=== PATIENT | female | born 1990 | race African-American/Black ===

== ENCOUNTER 2018-08-06 09:55 | Observation (INO) | payer OTHER ==
[~2018-08-06] VITALS: Ht 172.7 cm; Wt 87.5 kg
[~2018-08-06 09:55] MED LIST: FERR325T23; FOLI-43; PREN1TAB49
== END 2018-08-06 11:30 | disposition home or self-care (01) ==
LOC: 8 EST LDRP 09:55
PROVIDERS: ADMIT Specialist; ATTEND Specialist
DX: O62.9 Abnormality of forces of labor, unspecified (principal); Z3A.32 32 weeks gestation of pregnancy
CPT/HCPCS: 99281; G0378

== ENCOUNTER 2018-08-24 13:03 | Observation (INO) | payer OTHER ==
[~2018-08-24] VITALS: Ht 172.7 cm; Wt 88.5 kg
[2018-08-24] MEDS ORDERED: LACTATED RINGERS 1,000 ML IV SCH (14:00)
[2018-08-24] MEDS ORDERED: ONDANSETRON HCL 4MG/2ML INJ IV PRN (14:00)
[2018-08-24] MEDS ORDERED: ACETAMINOPHEN 325MG TABLET PO SCH (14:00)
[2018-08-24 14:14] LABS: CLARITY URINE CLEAR (CLEAR); COLOR URINE YELLOW (YELLOW); KETONES URINE 2+ (NEGATIVE); LEUKOCYTE ESTERASE URINE TRACE (NEGATIVE); NITRITE URINE NEGATIVE (NEGATIVE); OCCULT BLOOD URINE NEGATIVE (NEGATIVE); PROTEIN URINE NEGATIVE (NEGATIVE); SPECIFIC GRAVITY URINE 1.012 (1.005-1.030); UROBILINOGEN URINE 0.2 E.U./dL (0.2-1.0)
[2018-08-24 14:16] LABS: BASOPHILS % 0.6 % (0.0-2.0); EOSINOPHILS % 1.2 % (0.0-5.0); HEMATOCRIT. 35.7 % (36.0-48.0); HEMOGLOBIN. 12.2 g/dL (12.0-16.0); LYMPHOCYTES % 15.1 % (20.0-50.0); MEAN CORPUSCULAR HEMOGLOBIN 31.3 pg (28.0-32.0); MEAN CORPUSCULAR VOLUME 91.5 fL (81.0-99.0); MEAN PLATELET VOLUME 8.5 fl (7.4-10.4); MONOCYTES % 7.9 % (2.0-8.0); NEUTROPHILS % 75.2 % (40.0-76.0); PLATELET 249 x1000/uL (130-400)
[2018-08-24 14:17] LABS: CHLORIDE 106 mEq/L (98-107)
== END 2018-08-24 15:56 | disposition home or self-care (01) ==
LOC: 8 EST LDRP 13:03
PROVIDERS: ADMIT Specialist; ATTEND Specialist
DX: O21.2 Late vomiting of pregnancy (principal); O26.893 Other specified pregnancy related conditions, third trimester; R19.7 Diarrhea, unspecified; R51 Headache; Z3A.33 33 weeks gestation of pregnancy
CPT/HCPCS: 36415; 80053; 81003; 85025; 96374; G0378; J2405

== ENCOUNTER 2018-09-09 22:21 | Observation (INO) | payer OTHER ==
[~2018-09-09] VITALS: Ht 175.3 cm; Wt 89.4 kg
[~2018-09-09 22:21] MED LIST changes: -FERR325T23; -FOLI-43
[2018-09-09] MEDS ORDERED: PNV1TABL50 MT (23:22)
== END 2018-09-09 23:45 | disposition home or self-care (01) ==
LOC: 8 EST LDRP 22:21
PROVIDERS: ADMIT Obstetrics & Gynecology; ATTEND Obstetrics & Gynecology
DX: O42.913 Preterm premature rupture of membranes, unspecified as to length of time between rupture and onset of labor, third trimester (principal); O62.9 Abnormality of forces of labor, unspecified; O26.893 Other specified pregnancy related conditions, third trimester; M54.9 Dorsalgia, unspecified; R10.30 Lower abdominal pain, unspecified; Z3A.36 36 weeks gestation of pregnancy
CPT/HCPCS: 99281; G0378

== ENCOUNTER 2018-09-14 22:20 | Observation (INO) | payer OTHER ==
[~2018-09-14] VITALS: Ht 172.7 cm; Wt 90.7 kg
[~2018-09-14 22:20] MED LIST changes: +PNV1TABL50 MT
== END 2018-09-15 00:45 | disposition home or self-care (01) ==
LOC: 8 EST LDRP 22:20
PROVIDERS: ADMIT Specialist; ATTEND Specialist
DX: O62.9 Abnormality of forces of labor, unspecified (principal); Z3A.36 36 weeks gestation of pregnancy
CPT/HCPCS: 99281; G0378

== ENCOUNTER 2018-09-27 18:39 | Observation (INO) | payer OTHER | END 2018-09-27 21:30 | disposition home or self-care (01) | LOC: 8 EST LDRP 18:39 | PROVIDERS: ADMIT Specialist; ATTEND Specialist | DX: O26.893 Other specified pregnancy related conditions, third trimester (principal); R10.9 Unspecified abdominal pain; Z3A.38 38 weeks gestation of pregnancy | CPT/HCPCS: 99281; G0378 ==

== ENCOUNTER 2018-09-28 14:46 | Inpatient (IN) | payer OTHER ==
[~2018-09-28] VITALS: Ht 172.7 cm; Wt 92.5 kg
[2018-09-28] MEDS ORDERED: LACTATED RINGERS 1,000 ML IV PRN (15:30)
[2018-09-28] MEDS ORDERED: DEXT 5%/LR + PITOCIN 20UNITS/L 1,000 ML IV PRN (15:30)
[2018-09-28] MEDS ORDERED: LIDOCAINE HCL 1% 20ML VIAL (Pyxis) INJ INFIL PRN (15:30)
[2018-09-28] MEDS ORDERED: BUTORPHANOL TARTRATE 2 MG/ML VIAL IV PRN (15:30)
[2018-09-28] MEDS ORDERED: ROPIVACAINE HCL/PF EPIDURAL 200 ML EPI SCH (16:30)
[2018-09-28 16:43] LABS: BASOPHILS % 0.4 % (0.0-2.0); EOSINOPHILS % 0.6 % (0.0-5.0); HEMATOCRIT. 34.9 % (36.0-48.0); HEMOGLOBIN. 11.8 g/dL (12.0-16.0); LYMPHOCYTES % 12.9 % (20.0-50.0); MEAN CORPUSCULAR HEMOGLOBIN 31.1 pg (28.0-32.0); MEAN CORPUSCULAR VOLUME 92.1 fL (81.0-99.0); MEAN PLATELET VOLUME 8.8 fl (7.4-10.4); MONOCYTES % 7.3 % (2.0-8.0); NEUTROPHILS % 78.8 % (40.0-76.0); PLATELET 294 x1000/uL (130-400); RED BLOOD CELL COUNT 3.78 mill/uL (4.2-5.4); RED CELL DISTRIBUTION WIDTH 14.3 % (11.6-14.6)
[2018-09-28 16:47] LABS: INR 0.9; PARTIAL THROMBOPLASTIN TIME 29.4 sec (23.4-31.0); PROTHROMBIN TIME 9.4 sec (9.6-11.0)
[2018-09-28 17:17] LABS: HEPATITIS B SURFACE ANTIGEN NEGATIVE
[2018-09-28] MEDS ORDERED: FENTANYL CITRATE/PF 50MCG/ML 2ML VIAL ONE (18:09)
[2018-09-28] MEDS ORDERED: LIDOCAINE HCL/PF 1% 10 MG/ML 5ML VIAL ONE (18:10)
[2018-09-28 19:20] LABS: CLARITY URINE CLEAR (CLEAR); COLOR URINE YELLOW (YELLOW); KETONES URINE TRACE (NEGATIVE); LEUKOCYTE ESTERASE URINE TRACE (NEGATIVE); NITRITE URINE NEGATIVE (NEGATIVE); OCCULT BLOOD URINE 2+ (NEGATIVE); PROTEIN URINE NEGATIVE (NEGATIVE); SPECIFIC GRAVITY URINE 1.013 (1.005-1.030)
[2018-09-28 19:32] LABS: *AMPHETAMINES SCREEN URINE NEGATIVE (NEGATIVE)
[2018-09-28 19:33] LABS: *BARBITURATES SCREEN URINE NEGATIVE (NEGATIVE); *BENZODIAZEPINES SCREEN URINE NEGATIVE (NEGATIVE); *COCAINE SCREEN URINE NEGATIVE (NEGATIVE); METHADONE URINE SCREEN NEGATIVE (NEGATIVE); OPIATES URINE SCREEN NEGATIVE (NEGATIVE); PHENCYCLIDINE URINE SCREEN NEGATIVE (NEGATIVE)
[2018-09-28 19:43] LABS: CANNABINOID URINE SCREEN PRESUMTIVE POSITIVE (NEGATIVE)
[2018-09-28] MEDS ORDERED: DEXT 5%/LR + PITOCIN 20UNITS/L 1,000 ML IV SCH (22:33)
[2018-09-28] MEDS ORDERED: IBUPROFEN 400MG TABLET PO PRN (22:45)
[2018-09-28] MEDS ORDERED: DIPHENHYDRAMINE 25MG CAPSULE PO PRN (22:45)
[2018-09-28] MEDS ORDERED: LANOLIN OINT 0.25 GM TUBE TOP PRN (22:45)
[2018-09-28] MEDS ORDERED: ACETAMINOPHEN WITH CODEINE 300/30MG TABLET PO PRN (22:45)
[2018-09-28] MEDS ORDERED: IBUPROFEN 800MG TABLET PO PRN (22:45)
[2018-09-28] MEDS ORDERED: HEMORRHOIDAL SUPP PR PRN (22:45)
[2018-09-28] MEDS ORDERED: BENZOCAINE/LANOLIN/ALOE VERA SPRAY TOP PRN (22:45)
[2018-09-28] MEDS ORDERED: GLYCERIN/WITCH HAZEL LEAF MEDICATED PAD TOP PRN (22:45)
[2018-09-28] MEDS ORDERED: TETANUS, DIPHTHERIA, PERTUSSIS VAC/PF 0.5ML (>7YR OLD) IM ONE (22:45)
[2018-09-28] MEDS ORDERED: BISACODYL 10MG SUPP PR PRN (22:45)
[2018-09-28] MEDS ORDERED: INFLUENZA VIRUS VACCINE(AFLURIA) 0.5ML SYR IM ONE (22:45)
[2018-09-29 01:40] VITALS: BP 120/62
[2018-09-29 04:30] VITALS: BP 116/64
[2018-09-29 07:12] LABS: BASOPHILS % 0.4 % (0.0-2.0); EOSINOPHILS % 0.8 % (0.0-5.0); HEMATOCRIT. 32.6 % (36.0-48.0); HEMOGLOBIN. 11.1 g/dL (12.0-16.0); LYMPHOCYTES % 13.5 % (20.0-50.0); MEAN CORPUSCULAR HEMOGLOBIN 31.3 pg (28.0-32.0); MEAN CORPUSCULAR VOLUME 92.1 fL (81.0-99.0); MEAN PLATELET VOLUME 8.4 fl (7.4-10.4); MONOCYTES % 9.6 % (2.0-8.0); NEUTROPHILS % 75.7 % (40.0-76.0); PLATELET 237 x1000/uL (130-400); RED BLOOD CELL COUNT 3.53 mill/uL (4.2-5.4); RED CELL DISTRIBUTION WIDTH 14.1 % (11.6-14.6)
[2018-09-29 09:00] VITALS: BP 115/62
[2018-09-29] MEDS: FERROUS SULFATE 325MG TABLET PO SCH ×3 (09:18→18:01)
[2018-09-29] MEDS: PRENATAL VIT/FE FUMARATE/FA TABLET PO SCH (09:18)
[2018-09-29 16:20] VITALS: BP 122/68
[2018-09-29] MEDS ORDERED: MEDROXYPROGESTERONE ACETATE 150MG/ML VIAL IM NR (19:30)
[2018-09-29 20:00] VITALS: BP 130/68
[2018-09-29] MEDS ORDERED: DOCUSATE SODIUM 100MG CAPSULE PO SCH (21:00)
[2018-09-30 04:20] VITALS: BP 111/67
[2018-09-30] MEDS ORDERED: TETANUS, DIPHTHERIA, PERTUSSIS VAC/PF 0.5ML (>7YR OLD) IM ONE (06:00)
[2018-09-30 08:00] VITALS: BP 101/60
[2018-09-30] MEDS: FERROUS SULFATE 325MG TABLET PO SCH (08:47)
[2018-09-30] MEDS: PRENATAL VIT/FE FUMARATE/FA TABLET PO SCH (08:47)
[2018-10-03 15:06] LABS: CANNABINOID CONFIRMATION URINE Positive (.)
== END 2018-09-30 10:30 | disposition home or self-care (01) | DRG 560 ==
LOC: OBSVTOIN 14:46 → 8 EST LDRP 14:46 → 8 EST A/PP 09-29 00:30
PROVIDERS: ADMIT Specialist; ATTEND Specialist
PROC: 10E0XZZ Delivery of Products of Conception, External Approach (ICD-10-PCS; principal; 2018-09-28)
PROC: 3E0R3BZ Introduction of Anesthetic Agent into Spinal Canal, Percutaneous Approach (ICD-10-PCS; 2018-09-28)
PROC: 00HU33Z Insertion of Infusion Device into Spinal Canal, Percutaneous Approach (ICD-10-PCS; 2018-09-28)
PROC: 0UQGXZZ Repair Vagina, External Approach (ICD-10-PCS; 2018-09-28)
DX: O99.324 Drug use complicating childbirth (principal); O26.833 Pregnancy related renal disease, third trimester; O99.334 Smoking (tobacco) complicating childbirth; F17.200 Nicotine dependence, unspecified, uncomplicated; F12.10 Cannabis abuse, uncomplicated; O71.4 Obstetric high vaginal laceration alone; N20.0 Calculus of kidney; Z37.0 Single live birth; Z3A.38 38 weeks gestation of pregnancy
CPT/HCPCS: 36415; 80305; 80349; 86592; 86703; 86762; 86850; 86900; 87340; 90715; J1050; J2590; J2795; J3010; J3490; Q0163; A4315

== ENCOUNTER 2018-10-11 15:57 | Inpatient (IN) | payer OTHER ==
[~2018-10-11] VITALS: Ht 172.7 cm; Wt 77.1 kg
[~2018-10-11 15:57] MED LIST changes: -PNV1TABL50 MT
[2018-10-11] MEDS ORDERED: SODIUM CHLORIDE 0.9% 1,000 ML IV ONE (16:21)
[2018-10-11 16:49] LABS: BASOPHILS % 0.8 % (0.0-2.0); EOSINOPHILS % 2.3 % (0.0-5.0); HEMOGLOBIN. 11.7 g/dL (12.0-16.0); LYMPHOCYTES % 28.1 % (20.0-50.0); MEAN CORPUSCULAR HEMOGLOBIN 31.2 pg (28.0-32.0); MEAN CORPUSCULAR VOLUME 93.4 fL (81.0-99.0); MEAN PLATELET VOLUME 7.7 fl (7.4-10.4); MONOCYTES % 4.9 % (2.0-8.0); NEUTROPHILS % 63.9 % (40.0-76.0); PLATELET 334 x1000/uL (130-400); RED BLOOD CELL COUNT 3.75 mill/uL (4.2-5.4); RED CELL DISTRIBUTION WIDTH 13.8 % (11.6-14.6)
[2018-10-11 16:56] LABS: CHLORIDE 112 mEq/L (98-107); PROTHROMBIN TIME 10.3 sec (9.6-11.0)
[2018-10-11 17:06] LABS: B-HCG QUANTITATIVE 10 mIU/mL (<3)
[2018-10-11] MEDS ORDERED: MORPHINE SULFATE 4 MG/ML CPJ (NOT FOR IM USE) IV ONE (20:30)
[2018-10-11] MEDS ORDERED: MIDAZOLAM HCL 2 MG/2 ML VIAL ONE (21:49)
[2018-10-11] MEDS ORDERED: FENTANYL CITRATE/PF 50MCG/ML 2ML VIAL ONE (21:49)
[2018-10-11] MEDS ORDERED: ROCURONIUM BROMIDE 10MG/ML VIAL 5ML IV ONE (21:50)
[2018-10-11] MEDS ORDERED: LIDOCAINE HCL 1% 20ML VIAL (Pyxis) INJ ONE (21:50)
[2018-10-11] MEDS ORDERED: DEXAMETHASONE 4MG/ML 1ML VIAL ONE (21:50)
[2018-10-11] MEDS ORDERED: SODIUM CHLORIDE 0.9% 10ML VIAL ONE (21:50)
[2018-10-11] MEDS ORDERED: CEFAZOLIN SODIUM 1000MG/VIAL ONE (21:50)
[2018-10-11] MEDS ORDERED: PROPOFOL 200MG/20ML VIAL IV ONE ×2 (21:50→21:57)
[2018-10-11] MEDS ORDERED: ONDANSETRON HCL 4MG/2ML INJ ONE (21:51)
[2018-10-11] MEDS ORDERED: OXYTOCIN 10 UNITS/ML 1ML ONE (22:26)
[2018-10-11] MEDS ORDERED: METHYLERGONOVINE MALEATE 0.2 MG/ML ONE (22:27)
[2018-10-11] MEDS ORDERED: ACETAMINOPHEN 650MG SUPP PR PRN (22:45)
[2018-10-11] MEDS ORDERED: ONDANSETRON HCL 4MG/2ML INJ IV PRN (22:45)
[2018-10-11] MEDS ORDERED: IBUPROFEN 600MG TABLET PO PRN (22:45)
[2018-10-11] MEDS ORDERED: HYDROMORPHONE HCL/PF 2MG/ML CPJ IV PRN (23:00)
[2018-10-12 00:19] VITALS: BP 102/44
[2018-10-12] MEDS ORDERED: KETOROLAC 60MG/2ML VIAL IM SCH (01:43)
[2018-10-12] MEDS ORDERED: MISOPROSTOL 200MCG TABLET RC SCH ×2 (01:44→12:00)
[2018-10-12] MEDS ORDERED: DEXT 5%/0.45% NACL KCL 20MEQ/L 1,000 ML IV SCH (02:00)
[2018-10-12 02:50] VITALS: BP 105/45
[2018-10-12 04:00] VITALS: BP 100/40
[2018-10-12 06:12] LABS: BASOPHILS % 0.2 % (0.0-2.0); HEMATOCRIT. 29.6 % (36.0-48.0); HEMOGLOBIN. 10.1 g/dL (12.0-16.0); LYMPHOCYTES % 11.7 % (20.0-50.0); MEAN CORPUSCULAR HEMOGLOBIN 31.8 pg (28.0-32.0); MEAN PLATELET VOLUME 8.2 fl (7.4-10.4); MONOCYTES % 0.8 % (2.0-8.0); NEUTROPHILS % 87.3 % (40.0-76.0); PLATELET 309 x1000/uL (130-400); RED BLOOD CELL COUNT 3.18 mill/uL (4.2-5.4); RED CELL DISTRIBUTION WIDTH 13.8 % (11.6-14.6)
[2018-10-12 08:00] VITALS: BP 95/50
[2018-10-12 08:06] VITALS: BP 95/50
== END 2018-10-12 09:25 | disposition home or self-care (01) | DRG 544 ==
LOC: ER 16:09 → 6EST 19:37 → ENRESERV 20:26
PROVIDERS: ADMIT Specialist; ATTEND Specialist
PROC: 10D17ZZ Extraction of Products of Conception, Retained, Via Natural or Artificial Opening (ICD-10-PCS; principal; 2018-10-11)
DX: O72.2 Delayed and secondary postpartum hemorrhage (principal); O99.325 Drug use complicating the puerperium; F12.10 Cannabis abuse, uncomplicated; F17.210 Nicotine dependence, cigarettes, uncomplicated; N20.0 Calculus of kidney; N92.1 Excessive and frequent menstruation with irregular cycle; O99.335 Smoking (tobacco) complicating the puerperium; O90.89 Other complications of the puerperium, not elsewhere classified
CPT/HCPCS: 36415; 76830; 76856; 84702; 86850; 86900; 88305; 99285; J0690; J1100; J2210; J2250; J2270; J2405; J2704; J3010; J3490; J7030

== ENCOUNTER 2021-03-29 17:56 | Emergency (ER) | payer MEDICAID, OTHER ==
[~2021-03-29] VITALS: Ht 175.3 cm; Wt 100.0 kg
[2021-03-29] MEDS ORDERED: SODIUM CHLORIDE 0.9% 1,000 ML IV ONE (21:00)
[2021-03-29] MEDS ORDERED: METOCLOPRAMIDE HCL 10MG/2ML VIAL IV ONE (21:30)
[2021-03-29] MEDS ORDERED: ACETAMINOPHEN 325MG TABLET PO ONE (21:30)
[2021-03-29 21:34] LABS: BASOPHILS % 0.3 % (0.0-2.0); EOSINOPHILS % 1.4 % (0.0-5.0); HEMATOCRIT. 37.8 % (36.0-48.0); LYMPHOCYTES % 19.4 % (20.0-50.0); MEAN CORPUSCULAR HEMOGLOBIN 31.3 pg (28.0-32.0); MEAN CORPUSCULAR VOLUME 90.8 fL (81.0-99.0); MEAN PLATELET VOLUME 8.2 fl (7.4-10.4); MONOCYTES % 6.6 % (2.0-8.0); NEUTROPHILS % 72.3 % (40.0-76.0); PLATELET 298 x1000/uL (130-400); RED BLOOD CELL COUNT 4.16 mill/uL (4.2-5.4); RED CELL DISTRIBUTION WIDTH 13.8 % (11.6-14.6)
[2021-03-29 21:44] LABS: INR 0.9
[2021-03-29 21:53] LABS: HCG SCREEN POSITIVE
[2021-03-29 21:54] LABS: CHLORIDE 106 mEq/L (98-107)
[2021-03-29 21:58] LABS: ETHANOL BLOOD < 10 mg/dL
[2021-03-29 22:58] LABS: CLARITY URINE TURBID (CLEAR); COLOR URINE YELLOW (YELLOW); KETONES URINE TRACE (NEGATIVE); LEUKOCYTE ESTERASE URINE 1+ (NEGATIVE); NITRITE URINE NEGATIVE (NEGATIVE); OCCULT BLOOD URINE NEGATIVE (NEGATIVE); PROTEIN URINE NEGATIVE (NEGATIVE)
[2021-03-29 23:07] LABS: *AMPHETAMINES SCREEN URINE NEGATIVE (NEGATIVE); *BARBITURATES SCREEN URINE NEGATIVE (NEGATIVE); *BENZODIAZEPINES SCREEN URINE NEGATIVE (NEGATIVE); *COCAINE SCREEN URINE NEGATIVE (NEGATIVE); METHADONE URINE SCREEN NEGATIVE (NEGATIVE); OPIATES URINE SCREEN NEGATIVE (NEGATIVE); PHENCYCLIDINE URINE SCREEN NEGATIVE (NEGATIVE)
[2021-03-29 23:13] LABS: CANNABINOID URINE SCREEN PRESUMTIVE POSITIVE (NEGATIVE)
[2021-03-30] MEDS ORDERED: CEPH500C2 MT (00:03)
[2021-03-30] MEDS ORDERED: CEPHALEXIN 250MG CAPSULE PO ONE (00:15)
[2021-03-30 00:26] VITALS: BP 109/62
== END 2021-03-30 00:29 | disposition home or self-care (01) ==
LOC: ER 17:56
DX: R51.9 Headache, unspecified (principal); R55 Syncope and collapse; E86.0 Dehydration; Z79.899 Other long term (current) drug therapy
CPT/HCPCS: 36415; 70450; 80053; 80305; 80320; 81003; 81025; 82962; 84703; 85025; 85610; 93005; 96361; 96374; 99285; J2765; J7030; G0480

== ENCOUNTER 2021-06-29 15:27 | Observation (INO) | payer MEDICAID, OTHER ==
[~2021-06-29] VITALS: Ht 175.3 cm; Wt 97.5 kg
[~2021-06-29 15:27] MED LIST changes: +CEPH500C2 MT
[2021-06-29] MEDS ORDERED: KETOROLAC 30MG/ML VIAL IM ONE (16:15)
== END 2021-06-29 19:11 | disposition home or self-care (01) ==
LOC: ER 15:42 → 8 EST LDRP 16:02
PROVIDERS: ADMIT Specialist; ATTEND Specialist
DX: O26.853 Spotting complicating pregnancy, third trimester (principal); O99.891 Other specified diseases and conditions complicating pregnancy; M54.9 Dorsalgia, unspecified; Z3A.32 32 weeks gestation of pregnancy
CPT/HCPCS: 59025; 76815; 76818; G0378; 99281; G0379

== ENCOUNTER 2021-07-19 09:22 | Observation (INO) | payer OTHER ==
[~2021-07-19] VITALS: Ht 175.3 cm; Wt 97.5 kg
[~2021-07-19 09:22] MED LIST changes: -CEPH500C2 MT
== END 2021-07-19 11:55 | disposition home or self-care (01) ==
LOC: 8 EST LDRP 09:22
PROVIDERS: ADMIT Specialist; ATTEND Specialist
DX: O36.8130 Decreased fetal movements, third trimester, not applicable or unspecified (principal); Z3A.35 35 weeks gestation of pregnancy
CPT/HCPCS: 59025; 76815; 76818; G0378; 99281; G0379

== ENCOUNTER 2021-08-05 17:27 | Observation (INO) | payer OTHER ==
[~2021-08-05] VITALS: Ht 175.3 cm; Wt 94.8 kg
[2021-08-05] MEDS ORDERED: LACTATED RINGERS 1,000 ML IV SCH (20:00)
== END 2021-08-05 21:30 | disposition home or self-care (01) ==
LOC: 8 EST LDRP 17:27
PROVIDERS: ADMIT Specialist; ATTEND Specialist
DX: O62.9 Abnormality of forces of labor, unspecified (principal); O99.891 Other specified diseases and conditions complicating pregnancy; M54.9 Dorsalgia, unspecified; Z3A.37 37 weeks gestation of pregnancy
CPT/HCPCS: 59025; 76815; 76818; 96360; G0378; 99281

== ENCOUNTER 2021-08-13 16:59 | Inpatient (IN) | payer OTHER ==
[~2021-08-13] VITALS: Ht 175.3 cm; Wt 93.0 kg
[~2021-08-13 16:59] MED LIST changes: +LIDOCAINE HCL 2%/EPINEPHRINE 1:100,000 20 ML VIAL INFIL ONE
[2021-08-13] MEDS ORDERED: CARBOPROST TROMETHAMINE 250 MCG/ML AMPUL IM PRN (17:30)
[2021-08-13] MEDS ORDERED: METHYLERGONOVINE MALEATE 0.2 MG/ML IM PRN (17:30)
[2021-08-13] MEDS ORDERED: LIDOCAINE HCL 1% 20ML VIAL (Pyxis) INJ INFIL SCH (17:30)
[2021-08-13] MEDS ORDERED: NALOXONE HCL 0.4 MG/ML 1ML VIAL IM PRN (17:30)
[2021-08-13] MEDS ORDERED: BUTORPHANOL TARTRATE 2 MG/ML VIAL IV PRN (17:30)
[2021-08-13] MEDS ORDERED: DEXT 5%/LR + PITOCIN 20UNITS/L 1,000 ML IV SCH (17:30)
[2021-08-13] MEDS ORDERED: PENICILLIN G POTASSIUM 5 MMU in DEXT 5% WATER 100 ML IV SCH (18:00)
[2021-08-13] MEDS: LACTATED RINGERS 1,000 ML IV SCH ×2 (18:09→18:49)
[2021-08-13 18:14] LABS: CLARITY URINE CLEAR (CLEAR); COLOR URINE YELLOW (YELLOW); KETONES URINE 1+ (NEGATIVE); LEUKOCYTE ESTERASE URINE 1+ (NEGATIVE); NITRITE URINE NEGATIVE (NEGATIVE); OCCULT BLOOD URINE NEGATIVE (NEGATIVE); PROTEIN URINE NEGATIVE (NEGATIVE); SPECIFIC GRAVITY URINE 1.007 (1.005-1.030); UROBILINOGEN URINE 0.2 E.U./dL (0.2-1.0)
[2021-08-13] MEDS ORDERED: ROPIVACAINE HCL/PF EPIDURAL 200 ML EPI SCH (18:30)
[2021-08-13 18:31] LABS: *AMPHETAMINES SCREEN URINE NEGATIVE (NEGATIVE); *BARBITURATES SCREEN URINE NEGATIVE (NEGATIVE); *BENZODIAZEPINES SCREEN URINE NEGATIVE (NEGATIVE); *COCAINE SCREEN URINE NEGATIVE (NEGATIVE); METHADONE URINE SCREEN NEGATIVE (NEGATIVE)
[2021-08-13 18:32] LABS: CANNABINOID URINE SCREEN NEGATIVE (NEGATIVE); OPIATES URINE SCREEN NEGATIVE (NEGATIVE); PHENCYCLIDINE URINE SCREEN NEGATIVE (NEGATIVE)
[2021-08-13 18:35] LABS: BASOPHILS % 0.3 % (0.0-2.0); EOSINOPHILS % 1.3 % (0.0-5.0); HEMATOCRIT. 31.7 % (36.0-48.0); HEMOGLOBIN. 11.1 g/dL (12.0-16.0); LYMPHOCYTES % 17.8 % (20.0-50.0); MEAN CORPUSCULAR HEMOGLOBIN 31.5 pg (28.0-32.0); MEAN CORPUSCULAR VOLUME 89.9 fL (81.0-99.0); MEAN PLATELET VOLUME 8.6 fl (7.4-10.4); MONOCYTES % 7.5 % (2.0-8.0); NEUTROPHILS % 73.1 % (40.0-76.0); PLATELET 314 x1000/uL (130-400); RED BLOOD CELL COUNT 3.53 mill/uL (4.2-5.4); RED CELL DISTRIBUTION WIDTH 14.3 % (11.6-14.6)
[2021-08-13] MEDS ORDERED: LIDOCAINE HCL 1% 10 MG/ML 10ML VIAL IJ SCH (18:45)
[2021-08-13 18:55] LABS: INR 0.9; PARTIAL THROMBOPLASTIN TIME 31.2 sec (23.4-31.0); PROTHROMBIN TIME 10.2 sec (9.6-11.0)
[2021-08-13 19:18] LABS: HEPATITIS B SURFACE ANTIGEN NEGATIVE
[2021-08-13] MEDS ORDERED: PENICILLIN G POTASSIUM 2.5 MMU in DEXTROSE 5% WATER 50 ML IV SCH (21:00)
[2021-08-14] MEDS: LACTATED RINGERS 1,000 ML IV SCH (03:57)
[2021-08-14] MEDS ORDERED: DEXT 5%/LR + PITOCIN 20UNITS/L 1,000 ML IV SCH (04:45)
[2021-08-14] MEDS ORDERED: ACETAMINOPHEN WITH CODEINE 300/30MG TABLET PO PRN (04:45)
[2021-08-14] MEDS ORDERED: HEMORRHOIDAL SUPP PR PRN (04:45)
[2021-08-14] MEDS ORDERED: LANOLIN OINT 7GM TUBE TOP PRN (04:45)
[2021-08-14] MEDS ORDERED: BISACODYL 10MG SUPP PR PRN (04:45)
[2021-08-14] MEDS ORDERED: DIPHENHYDRAMINE 25MG CAPSULE PO PRN (04:45)
[2021-08-14] MEDS ORDERED: IBUPROFEN 400MG TABLET PO PRN (04:45)
[2021-08-14] MEDS ORDERED: GLYCERIN/WITCH HAZEL LEAF MEDICATED PAD TOP PRN (04:45)
[2021-08-14] MEDS ORDERED: MIDAZOLAM HCL 2 MG/2 ML VIAL ONE ×2 (06:14→06:36)
[2021-08-14] MEDS ORDERED: PROPOFOL 200MG/20ML VIAL IV ONE (06:14)
[2021-08-14] MEDS ORDERED: FENTANYL CITRATE/PF 50MCG/ML 2ML VIAL ONE (06:14)
[2021-08-14] MEDS ORDERED: KETOROLAC 60MG/2ML VIAL IM ONE (06:40)
[2021-08-14] MEDS ORDERED: LIDOCAINE HCL 1% 10 MG/ML 10ML VIAL ONE (06:43)
[2021-08-14] MEDS ORDERED: BUPIVACAINE HCL/PF 0.25% (2.5MG/ML) 10ML ONE (06:45)
[2021-08-14 08:25] VITALS: BP 103/63
[2021-08-14] MEDS: PRENATAL VIT/FE FUMARATE/FA TABLET PO SCH (08:38)
[2021-08-14] MEDS: SIMETHICONE 80MG TABLET CHEW PO SCH ×4 (08:38→20:50)
[2021-08-14] MEDS: IBUPROFEN 800MG TABLET PO PRN ×2 (08:38→20:49)
[2021-08-14 16:10] VITALS: BP 105/56
[2021-08-14 19:30] VITALS: BP 124/75
[2021-08-14] MEDS ORDERED: DOCUSATE SODIUM 100MG CAPSULE PO SCH (21:00)
[2021-08-15] MEDS: IBUPROFEN 800MG TABLET PO PRN (03:53)
[2021-08-15 04:00] VITALS: BP 117/77
[2021-08-15 07:05] LABS: BASOPHILS % 0.4 % (0.0-2.0); EOSINOPHILS % 1.1 % (0.0-5.0); HEMATOCRIT. 29.5 % (36.0-48.0); HEMOGLOBIN. 9.9 g/dL (12.0-16.0); LYMPHOCYTES % 15.5 % (20.0-50.0); MEAN CORPUSCULAR HEMOGLOBIN 30.7 pg (28.0-32.0); MEAN CORPUSCULAR VOLUME 91.3 fL (81.0-99.0); MEAN PLATELET VOLUME 8.6 fl (7.4-10.4); MONOCYTES % 10.5 % (2.0-8.0); NEUTROPHILS % 72.5 % (40.0-76.0); PLATELET 257 x1000/uL (130-400); RED BLOOD CELL COUNT 3.23 mill/uL (4.2-5.4); RED CELL DISTRIBUTION WIDTH 14.4 % (11.6-14.6)
[2021-08-15 07:30] VITALS: BP 117/56
[2021-08-15] MEDS: SIMETHICONE 80MG TABLET CHEW PO SCH (09:00)
[2021-08-15] MEDS ORDERED: FERROUS SULFATE 325MG TABLET PO SCH (09:00)
[2021-08-15] MEDS: PRENATAL VIT/FE FUMARATE/FA TABLET PO SCH (09:15)
== END 2021-08-15 12:50 | disposition home or self-care (01) | DRG 541 ==
LOC: OBSVTOIN 16:59 → 8 EST LDRP 16:59 → 8 EST A/PP 08-14 08:30
PROVIDERS: ADMIT Specialist; ATTEND Specialist
PROC: 10E0XZZ Delivery of Products of Conception, External Approach (ICD-10-PCS; principal; 2021-08-14)
PROC: 0UB70ZZ Excision of Bilateral Fallopian Tubes, Open Approach (ICD-10-PCS; 2021-08-14)
PROC: 3E0R3BZ Introduction of Anesthetic Agent into Spinal Canal, Percutaneous Approach (ICD-10-PCS; 2021-08-14)
PROC: 00HU33Z Insertion of Infusion Device into Spinal Canal, Percutaneous Approach (ICD-10-PCS; 2021-08-14)
DX: O99.824 Streptococcus B carrier state complicating childbirth (principal); Z37.0 Single live birth; O98.52 Other viral diseases complicating childbirth; B00.9 Herpesviral infection, unspecified; Z20.822 Contact with and (suspected) exposure to COVID-19; Z3A.38 38 weeks gestation of pregnancy; Z30.2 Encounter for sterilization
CPT/HCPCS: 36415; 80305; 81003; 85025; 86592; 86703; 86762; 86850; 86900; 87340; 87426; 88302; 99281; G0378; J1885; J2250; J2540; J2590; J2704; J2795; J3010; J3490; J7060; A4315

== ENCOUNTER 2021-08-24 21:41 | Emergency (ER) | payer OTHER ==
[~2021-08-24] VITALS: Ht 175.3 cm; Wt 91.0 kg
[~2021-08-24 21:41] MED LIST changes: -LIDOCAINE HCL 2%/EPINEPHRINE 1:100,000 20 ML VIAL INFIL ONE
[2021-08-25 00:27] LABS: BASOPHILS % 0.4 % (0.0-2.0); EOSINOPHILS % 2.6 % (0.0-5.0); HEMATOCRIT. 33.2 % (36.0-48.0); HEMOGLOBIN. 11.1 g/dL (12.0-16.0); LYMPHOCYTES % 26.3 % (20.0-50.0); MEAN CORPUSCULAR HEMOGLOBIN 30.7 pg (28.0-32.0); MEAN CORPUSCULAR VOLUME 91.7 fL (81.0-99.0); MEAN PLATELET VOLUME 7.5 fl (7.4-10.4); MONOCYTES % 7.5 % (2.0-8.0); NEUTROPHILS % 63.2 % (40.0-76.0); PLATELET 414 x1000/uL (130-400); RED BLOOD CELL COUNT 3.62 mill/uL (4.2-5.4); RED CELL DISTRIBUTION WIDTH 14.3 % (11.6-14.6)
[2021-08-25 00:28] LABS: CHLORIDE 112 mEq/L (98-107)
[2021-08-25 01:36] VITALS: BP 112/63
[2021-08-25 01:59] LABS: CLARITY URINE CLEAR (CLEAR); COLOR URINE YELLOW (YELLOW); KETONES URINE NEGATIVE (NEGATIVE); LEUKOCYTE ESTERASE URINE TRACE (NEGATIVE); NITRITE URINE NEGATIVE (NEGATIVE); OCCULT BLOOD URINE TRACE (NEGATIVE); PROTEIN URINE NEGATIVE (NEGATIVE); SPECIFIC GRAVITY URINE 1.019 (1.005-1.030)
== END 2021-08-25 02:06 | disposition home or self-care (01) ==
LOC: ER 21:41
DX: O72.1 Other immediate postpartum hemorrhage (principal); Z37.9 Outcome of delivery, unspecified
CPT/HCPCS: 36415; 76830; 76856; 80053; 81003; 85025; 86850; 86900; 99284